=== PATIENT | male | born 1960 | race Caucasian/White ===

== ENCOUNTER 2017-03-14 16:20 | Emergency (ER) | payer OTHER ==
[2017-03-14 16:59] LABS: BASOPHILS 0.3 % (0-2); EOSINOPHILS 3.6 % (0-7); HEMATOCRIT 38.1 % (42.0-54.0); HEMOGLOBIN 13.3 g/dL (13.5-17.5); IMMATURE GRANULOCYTES 0.1 % (0-5); LYMPHOCYTES 17.4 % (15-50); MCH 31.6 pg (26.0-34.0); MCHC 34.9 g/dL (31.0-37.0); MCV 90.5 fL (80.0-100.0); MEAN PLATELET VOLUME 9.8 fL (7.4-10.4); MONOCYTES 6.3 % (2-11); NEUTROPHILS 72.3 % (40-80); PLATELET COUNT 190 10x3/uL (130-400); RBC 4.21 10x6/uL (4.20-6.10); RDW 13.3 % (11.5-14.5); WBC 7.8 10x3/uL (4.8-10.8)
[2017-03-14 18:03] LABS: ALBUMIN 3.5 g/dL (3.4-5.0); ALKALINE PHOSPHATASE 76 U/L (46-116); ALT (SGPT) 33 U/L (10-68); CALC OSMOLALITY 281 mosm/kg (275-300); CALCIUM 8.5 mg/dL (8.5-10.1); CARBON DIOXIDE 24.4 mmol/L (21.0-32.0); CHLORIDE - SERUM 103 mmol/L (98-107); CHOL - HDL RATIO 4.4 ratio (2.3-4.9); CHOLESTEROL, TOTAL 92 mg/dL (0-200); CKMB 2.2 U/L (0.0-3.6); CREATINE KINASE 100 UL (21-232); CREATININE - SERUM 1.4 mg/dL (0.6-1.3); GLUCOSE 211 mg/dL (74-106); HDL CHOLESTEROL 21 mg/dL (32-96); POTASSIUM - SERUM 5.2 mmol/L (3.5-5.1); PROTEIN - SERUM 6.7 g/dL (6.4-8.2); SODIUM 136 mmol/L (136-145); TROPONIN-I 0.058 ng/mL (0.000-0.060); UREA NITROGEN 23 mg/dL (7-18); eGFR NON AFRICAN AMERICAN 55 mL/min (90-120)
[2017-03-14 18:04] LABS: TRIGLYCERIDE 554 mg/dL (30-200)
[2017-03-14 19:43] LABS: CKMB 4.9 U/L (0.0-3.6); CREATINE KINASE 116 UL (21-232)
[2017-03-14 19:46] LABS: TROPONIN-I 0.798 ng/mL (0.000-0.060)
== END 2017-03-14 23:16 | disposition short-term general hospital (02) ==
LOC: D.ER 16:20
PROVIDERS: Emergency Medicine
DX: R07.9 Chest pain, unspecified (principal); E11.9 Type 2 diabetes mellitus without complications; I10 Essential (primary) hypertension

== ENCOUNTER 2018-06-11 13:54 | Emergency (ER) | payer OTHER ==
[~2018-06-11] VITALS: Ht 177.8 cm; Wt 113.6 kg
[2018-06-11 14:07] VITALS: Ht 177.8 cm; Wt 113.6 kg
[2018-06-11] MEDS ORDERED: GLUCOTROL 5 MG T5 MG (14:12)
[2018-06-11] MEDS ORDERED: GLUCOPHAGE500 MG (14:12)
[2018-06-11] MEDS ORDERED: PRINIVIL20 MG (14:13)
[2018-06-11] MEDS ORDERED: BAYER CHEWABLE81 MG PO (14:15)
[2018-06-11 15:43] LABS: APPEARANCE HAZY (CLEAR); BILIRUBIN NEGATIVE (NEGATIVE); GLUCOSE 1000 mg/dL (NEGATIVE); KETONE NEGATIVE (NEGATIVE); NITRITE NEGATIVE (NEGATIVE); PROTEIN 1+ mg/dL (NEGATIVE); SPECIFIC GRAVITY 1.015 (1.005-1.020); UROBILINOGEN NORMAL (NORMAL)
[2018-06-11 15:44] LABS: BACTERIA MODERATE /hpf (NONE SEEN); EPITHELIAL CELLS 0-5 /hpf (0-5); RED CELLS - URINE >50 /hpf (0-5); WHITE CELLS - URINE 0-5 /hpf (0-5)
[2018-06-11 15:52] LABS: BASOPHILS 0.3 % (0-2); EOSINOPHILS 4.5 % (0-7); HEMATOCRIT 37.9 % (42.0-54.0); HEMOGLOBIN 12.8 g/dL (13.5-17.5); IMMATURE GRANULOCYTES 0.3 % (0-5); LYMPHOCYTES 22.2 % (15-50); MCH 31.3 pg (26.0-34.0); MCHC 33.8 g/dL (31.0-37.0); MCV 92.7 fL (80.0-100.0); MEAN PLATELET VOLUME 9.7 fL (7.4-10.4); MONOCYTES 8.3 % (2-11); NEUTROPHILS 64.4 % (40-80); PLATELET COUNT 172 10x3/uL (130-400); RBC 4.09 10x6/uL (4.20-6.10); RDW 13.3 % (11.5-14.5); WBC 6.2 10x3/uL (4.8-10.8)
[2018-06-11 16:12] LABS: ALBUMIN 3.4 g/dL (3.4-5.0); ANION GAP 13.7 mmol/L (8-16); BILIRUBIN - TOTAL 0.64 mg/dL (0.2-1.3); CALCIUM 8.7 mg/dL (8.5-10.1); CARBON DIOXIDE 26.4 mmol/L (21.0-32.0); CREATININE - SERUM 1.3 mg/dL (0.6-1.3); POTASSIUM - SERUM 4.1 mmol/L (3.5-5.1); PROTEIN - SERUM 6.9 g/dL (6.4-8.2)
[2018-06-11] MEDS ORDERED: FUROSEMIDE20 MG PO (16:44)
[2018-06-11 16:54] VITALS: BP 150/77
== END 2018-06-11 16:54 | disposition home or self-care (01) ==
LOC: D.ER 13:54
PROVIDERS: Family Medicine
DX: I10 Essential (primary) hypertension (principal); R31.9 Hematuria, unspecified; R60.0 Localized edema; Z86.73 Personal history of transient ischemic attack (TIA), and cerebral infarction without residual deficits; E11.9 Type 2 diabetes mellitus without complications

== ENCOUNTER 2020-11-29 09:20 | Emergency (ER) | payer OTHER ==
[~2020-11-29] VITALS: Ht 177.8 cm; Wt 113.6 kg
[~2020-11-29 09:20] MED LIST: BAYER CHEWABLE81 MG PO; FUROSEMIDE20 MG PO; GLUCOPHAGE500 MG; GLUCOTROL 5 MG T5 MG; PRINIVIL20 MG
[2020-11-29 09:40] VITALS: Ht 177.8 cm; Wt 113.6 kg
[2020-11-29] MEDS ORDERED: MOBIC7.5 MG PO (10:28)
[2020-11-29] MEDS ORDERED: TYLENOL ARTHRI650 MG PO (10:28)
[2020-11-29 11:01] VITALS: BP 110/80
== END 2020-11-29 11:02 | disposition home or self-care (01) ==
LOC: D.ER 09:20
DX: M25.562 Pain in left knee (principal); M19.90 Unspecified osteoarthritis, unspecified site; Z86.73 Personal history of transient ischemic attack (TIA), and cerebral infarction without residual deficits; E11.9 Type 2 diabetes mellitus without complications; I10 Essential (primary) hypertension; Z79.84 Long term (current) use of oral hypoglycemic drugs